=== PATIENT | male | born 1990 | race Caucasian/White ===

== ENCOUNTER 2016-06-10 17:54 | Emergency (ER) | payer BC ==
[~2016-06-10] VITALS: Ht 167.6 cm; Wt 56.7 kg
--- NOTE | 2016-06-10 18:49 | EKG ---
[address] [address] Test Date: 2016-06-10 Test Time: 18:47:51 Pat Name: SE CUNNINGHAM Department: Room: Gender: M [employer] Professional: : 1990 Requested By: SYED TOWNSEND Order Number: [id number] Reading MD: Victor Hugo Lew Measurements Intervals [place] Rate: 109 P: 44 [place]: 130 QRS: 19 QRSD: 70 T: 20 QT: 286 QTc: 386 Interpretive Statements SINUS TACHYCARDIA Electronically Signed On 06-12-2016 10:25:36 CDT by Victor Hugo Lew
[2016-06-10] MEDS ORDERED: ONDANSETRON PF 4 MG/2 ML VIAL. IV ONE (19:00)
[2016-06-10] MEDS: IV NORMAL SALINE 1,000ML 1,000 ML IV SCH ×2 (19:06→19:08)
[2016-06-10 19:19] LABS: BASO # 0.1 x10^3/uL (0.0-0.2); BASO % 1 % (0-3); EOS % 0 % (0-3); HEMATOCRIT 48.6 % (39.0-53.0); HEMOGLOBIN 16.3 g/dL (13.0-17.5); LYMPH # 1.5 x10^3/uL (1.0-4.8); LYMPH % 13 % (24-48); MEAN CORPUSCULAR HEMOGLOBIN 30 pg (25-35); MEAN CORPUSCULAR HGB CONC 34 g/dL (31-37); MEAN CORPUSCULAR VOLUME 88 fL (79-100); MONO # 0.7 x10^3/uL (0.0-1.1); MONO % 6 % (0-9); NEUT # 9.1 x10^3uL (1.8-7.7); NEUT % 80 % (31-73); PLATELET COUNT 342 x10^3/uL (140-400); RED BLOOD COUNT 5.52 x10^6/uL (4.30-5.70); RED CELL DISTRIBUTION WIDTH 12.8 % (11.5-14.5); WHITE BLOOD COUNT 11.3 x10^3/uL (4.0-11.0)
[2016-06-10 19:39] LABS: ALBUMIN 3.9 g/dL (3.4-5.0); ALBUMIN/GLOBULIN RATIO 0.9 (1.0-1.7); CALCIUM 9.5 mg/dL (8.5-10.1); CREATININE 1.4 mg/dL (0.7-1.3); GFR 61.7; TOTAL BILIRUBIN 0.5 mg/dL (0.2-1.0); TOTAL PROTEIN 8.1 g/dL (6.4-8.2)
[2016-06-10] MEDS ORDERED: IV NORMAL SALINE 1,000ML 1,000 ML IV SCH (20:04)
[2016-06-10] MEDS ORDERED: IOHEXOL 300 MG/ML 75 ML VIAL. IV ONE (20:15)
[2016-06-10 20:18] LABS: COLOR,URINE YELLOW
[2016-06-10 20:20] LABS: BILIRUBIN,URINE NEG (NEG); CLARITY,URINE HAZY; NITRITE,URINE NEG (NEG); UROBILINOGEN,URINE 0.2 mg/dL (0.2 mg/dL)
[2016-06-10 20:21] LABS: BACTERIA,URINE 0 /HPF (0-FEW); GLUCOSE,URINE 250 mg/dL (NEG); SQUAMOUS EPITHELIAL CELL,UR FEW /LPF
[2016-06-10 20:25] LABS: HYALINE CASTS, URINE MANY /HPF
[2016-06-10 20:28] LABS: AMPHETAMINE/METHAMPHETAMINE NEG (NEG); BARBITURATES NEG (NEG); BENZODIAZEPINES NEG (NEG); CANNABINOIDS POS (NEG); COCAINE NEG (NEG); METHADONE NEG (NEG); OPIATES NEG (NEG); PHENCYCLIDINE NEG (NEG)
--- NOTE | 2016-06-10 20:41 | RAD ---
PROCEDURE Chest CTA HISTORY Chest pain, shortness of air, tachycardia, elevated D-dimer TECHNIQUE After administration of intravenous contrast, CT imaging was performed of the chest, multiplanar reconstruction images submitted. Exposure: One or more of the following individualized dose reduction techniques were utilized for this exam: 1. Automated exposure control. 2. Adjustment of the mA and/or kV according to patient size. 3. Use of iterative reconstruction technique. Contrast: 75 cc Omnipaque 300 COMPARISON None FINDINGS No pulmonary embolism is identified. There is no pleural or pericardial effusion, pneumothorax, lobar infiltrate. There is a noncalcified left lower lobe pulmonary nodule axial image 105 series 4 up to 0.7 centimeters. The major airways are patent. Density of the anterior mediastinum does not result in significant mass effect, residual or reactive thymus favored. Thoracic aortic caliber is within normal limits without intraluminal flap. No significant lymphadenopathy is identified of the chest. No abnormality of the visualized thyroid gland. There is no significant abnormality of the limited visualized abdominal visceral organs. IMPRESSION 1. No pulmonary embolism is identified. 2. There is a noncalcified left lower lobe incidental pulmonary nodule on the order of 0.7 centimeters. Unless there is a known history of or suspicion for malignancy, this is less likely to be of clinical significance in a patient of this age. Electronically signed by: Teodoro Jo MD (June 10, 2016 20:39:35)
[2016-06-10 20:43] VITALS: BP 115/64
--- NOTE | 2016-06-10 21:02 | PHYS DOC ---
General Chief Complaint: NAUSEA/VOMITING/DIARRHEA Stated Complaint: NAUSEA/VOMITING Time Seen by MD: 18:00 Source: patient Exam Limitations: no limitations Problems: History of Present Illness Initial Comments Pt is 25/M to ED with stepfather for DKA. Pt is DM1, states he's been having "insurance issues" and has been out of Lantus for three weeks. States for the past three weeks he's had N/V/Chest tightness and feeling of dehydration. Pt had some novolog left over from [facility]SI, states he's taken it at random when he hasn't felt well and confirms he took 30units prior to ED arrival. Pt hasn't been checking home glucose and admit to smoking "heavily." ED VS: 97.5, 133, 12, 131/75, 96% RA. Pt denies any s/s focal infection. No fever/chills/diaphoresis/myalgias/cough/ nasal congestion/bowel or bladder sx. Timing/Duration: constant (3 wks) Severity: severe Modifying Factors: improves with medication Associated Symptoms: chest pain, malaise, nausea/vomiting, shortness of breath , other Allergies: Coded Allergies: No Known Drug Allergies (Unverified , 06/10/16) Past Medical History Medical History: diabetes Surgical History: noncontributory Social History Smoker: greater than 1 pack/day Alcohol: occasionally Drugs: none Review of Systems Constitutional: see HPI Respiratory: denies cough, shortness of breathdenies wheezing Cardiovascular: chest paindenies palpitations, denies syncope Gastrointestinal: abdominal paindenies constipation, denies diarrhea, denies nausea, denies vomiting Genitourinary: denies dysuria, frequencydenies hematuria Musculoskeletal: denies back pain, denies joint swelling, denies neck pain Psychiatric/Neurological: denies numbness, denies paresthesia, denies weakness Hematologic/Lymphatic: denies blood clots, denies easy bleeding, denies easy bruising Physical Exam General Appearance: no apparent distress, thin Eyes: bilateral eye EOMI, bilateral eye PERRL, bilateral eye normal inspection Ear, Nose, Throat: hearing grossly normal, normal ENT inspection, normal pharynx (dry membranes) Neck: non-tender, supple Respiratory: normal breath sounds, no respiratory distress Cardiovascular: normal peripheral pulses, tachycardia Gastrointestinal: soft (abdominal mm TTP (mild) neg mcburney/escobedo, nondistended BS nl no mass.) Rectal: deferred Back: no CVA tenderness, no vertebral tenderness Extremities: non-tender, normal inspection Neurologic/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 Labs: WBC 11.3, BUN 17, Cr 1.4, glucose 114, lactic acid 5.8, d-dimer 0.51, AST 95, ALT 291, Lip 174, anion gap 18 UA: glucose 250, ketones 40 UDS: + cannabinoids PATIENT: SE CUNNINGHAM ACCOUNT: [id number] : 1990 LOCATION: ER AGE: 25 SEX: M EXAM STATUS: REG ER ORD. PHYSICIAN: SYED TOWNSEND DO REASON: tachycardia, cp, elev d-dimer PROCEDURE: CT ANGIOGRAPHY CHEST PROCEDURE Chest CTA HISTORY Chest pain, shortness of air, tachycardia, elevated D-dimer TECHNIQUE After administration of intravenous contrast, CT imaging was performed of the chest, multiplanar reconstruction images submitted. Exposure: One or more of the following individualized dose reduction techniques were utilized for this exam: 1. Automated exposure control. 2. Adjustment of the mA and/or kV according to patient size. 3. Use of iterative reconstruction technique. Contrast: 75 cc Omnipaque 300 COMPARISON None FINDINGS No pulmonary embolism is identified. There is no pleural or pericardial effusion, pneumothorax, lobar infiltrate. There is a noncalcified left lower lobe pulmonary nodule axial image 105 series 4 up to 0.7 centimeters. The major airways are patent. Density of the anterior mediastinum does not result in significant mass effect, residual or reactive thymus favored. Thoracic aortic caliber is within normal limits without intraluminal flap. No significant lymphadenopathy is identified of the chest. No abnormality of the visualized thyroid gland. There is no significant abnormality of the limited visualized abdominal visceral organs. IMPRESSION 1. No pulmonary embolism is identified. 2. There is a noncalcified left lower lobe incidental pulmonary nodule on the order of 0.7 centimeters. Unless there is a known history of or suspicion for malignancy, this is less likely to be of clinical significance in a patient of this age. Electronically signed by: Syed Jo MD (June 10, 2016 20:39:35) DICTATED AND SIGNED BY: GONZALES JO MD DATE: 06/10/162038 CC: OSMEL HERNANDEZ MD; SYED TOWNSEND DO ~ Pt received two 1L NS boluses IV in department. recheck of basic by ISTAT glucose 95, anion gap 20 I discussed need for inpatient management, pt initially agreeable. 2214: Pt discussed with Dr Valera. Metabolic Acidosis, admit for hydration and acid/base correction/glucose management. After pt accepted/orders written pt expresses desire to leave AMA. Pt is AOx3, exhibits UCAR capacity. Risks/benefits of staying vs leaving discussed and questions answered. Benefits of staying possible early diagnosis/treatment of lifesaving condition. Possible risks of leaving AMA loss of quality of life and . Pt reiterates desire to leave AMA, understands he may return at any time. Departure Time of Disposition: 22:28 Disposition: 07 AGAINST MEDICAL ADVICE Diagnosis: metabolic acidosis, tobaccoism, DM uncontrolled, Condition: GUARDED Patient Instructions: Diabetes and Standards of Medical Care, Metabolic Acidosis, Smokeless Tobacco Use Additional Instructions: Stop smoking, seek medical assistance if necessary. Aggressive hydration with gatorade, water. Keep detailed glucose log before meals and at bedtime to take with you to endocrinology appointment. Rx: sliding scale insulin with regular insulin SQ As discussed, observation admission recommended to you to correct metabolic acidosis and stabilize your sugar. You have chosen instead to leave Against Medical Advise. Risks and benefits of staying vs leaving have been discussed with you, ultimate risks of leaving without treatment include potential worsening of illness, loss of quality of life, and . You understand you may return at any time. Follow up with your doctor tomorrow 5/2. Return to ED with new or changing symptoms. SYED TOWNSEND DO June 10, 2016 21:02
[2016-06-10 23:17] LABS: HEMOGLOBIN ISTAT 14.6 gm/dL; POTASSIUM ISTAT 4.2 mmol/L (3.5-5.0)
--- NOTE | 2016-06-11 08:13 | RAD ---
Portable chest, 06/10/2016: History: Chest pain, nausea and vomiting The heart size and pulmonary vascularity are normal. No pulmonary infiltrates are seen. There is no evidence of pleural fluid. IMPRESSION: No acute cardiopulmonary abnormality is detected.
== END 2016-06-10 22:35 | disposition left against medical advice (07) ==
LOC: ER 17:54
DX: E87.2 Acidosis (principal); E86.0 Dehydration; E13.10 Other specified diabetes mellitus with ketoacidosis without coma; F17.210 Nicotine dependence, cigarettes, uncomplicated
CPT/HCPCS: 36415; 71010; 71275; 80047; 80053; 80305; 80320; 81001; 82550; 83605; 83690; 84484; 85027; 85379; 87040; 87086; 93005; 96361; 96374; 99285; J2405; Q9967; G0480; G0481; J7030

== ENCOUNTER 2018-06-09 17:43 | Emergency (ER) | payer BC ==
[~2018-06-09] VITALS: Ht 167.6 cm; Wt 56.7 kg
[2018-06-09] MEDS ORDERED: IV NORMAL SALINE 1,000ML 1,000 ML IV ONE ×2 (18:15→18:45)
[2018-06-09 18:35] LABS: BASO # 0.1 x10^3/uL (0.0-0.2); BASO % 1 % (0-3); EOS # 0.1 x10^3/uL (0.0-0.7); EOS % 1 % (0-3); HEMATOCRIT 45.8 % (39.0-53.0); HEMOGLOBIN 15.9 g/dL (13.0-17.5); LYMPH # 2.3 x10^3/uL (1.0-4.8); LYMPH % 27 % (24-48); MEAN CORPUSCULAR HEMOGLOBIN 30 pg (25-35); MEAN CORPUSCULAR HGB CONC 35 g/dL (31-37); MEAN CORPUSCULAR VOLUME 86 fL (79-100); MONO # 0.6 x10^3/uL (0.0-1.1); MONO % 7 % (0-9); NEUT # 5.5 x10^3uL (1.8-7.7); NEUT % 64 % (31-73); PLATELET COUNT 297 x10^3/uL (140-400); RED CELL DISTRIBUTION WIDTH 12.6 % (11.5-14.5); WHITE BLOOD COUNT 8.5 x10^3/uL (4.0-11.0)
[2018-06-09 18:39] LABS: ALBUMIN 4.4 g/dL (3.4-5.0); ALBUMIN/GLOBULIN RATIO 1.2 (1.0-1.7); CALCIUM 9.6 mg/dL (8.5-10.1); CREATININE 1.2 mg/dL (0.7-1.3); GFR 72.6; POTASSIUM 4.4 mmol/L (3.5-5.1); TOTAL BILIRUBIN 0.3 mg/dL (0.2-1.0)
[2018-06-09 19:02] LABS: BACTERIA,URINE FEW /HPF (0-FEW); BILIRUBIN,URINE NEG (NEG); CLARITY,URINE HAZY; COLOR,URINE YELLOW; GLUCOSE,URINE >=1000 mg/dL (NEG); NITRITE,URINE NEG (NEG); RBC,URINE 0 /HPF (0-2); UROBILINOGEN,URINE 0.2 mg/dL (0.2 mg/dL); WBC,URINE 0 /HPF (0-4)
[2018-06-09 19:03] LABS: SQUAMOUS EPITHELIAL CELL,UR OCC /LPF
[2018-06-09 19:15] LABS: AMPHETAMINE/METHAMPHETAMINE NEG (NEG); BARBITURATES NEG (NEG); BENZODIAZEPINES NEG (NEG); CANNABINOIDS NEG (NEG); COCAINE NEG (NEG); METHADONE NEG (NEG); OPIATES NEG (NEG); PHENCYCLIDINE NEG (NEG)
[2018-06-09] MEDS ORDERED: INSULIN REGULAR 100 UNIT/ML 3ML VIAL. SQ ONE (19:45)
--- NOTE | 2018-06-09 19:45 | PHYS DOC ---
Past History Past Medical History: Diabetes Past Surgical History: No Surgical History Smoking: Cigarettes Alcohol Use: None Drug Use: None Adult General Chief Complaint Chief Complaint: DEHYDRATION HPI HPI 27 y/o male presents with history of known elevated blood sugar. Patient reports he been feeling like his blood sugar might be high over the last few days. Reports he has been trying to make his insulin last and not using as much as he should in order to have the prescription last. Denies fever/chills. Reports increased urination. Reports concern that he might be dehydrated. Reports some nausea this AM. Denies vomiting or diarrhea. Review of Systems Review of Systems Constitutional: Denies fever or chills [] Eyes: Denies change in visual acuity, redness, or eye pain [] HENT: Denies nasal congestion or sore throat [] Respiratory: Denies cough or shortness of breath [] Cardiovascular: Denies chest pain or palpitations GI: Denies abdominal pain, vomiting, or diarrhea; reports nausea : Denies dysuria; reports increased frequency Musculoskeletal: Denies back pain or joint pain [] Integument: Denies rash or skin lesions [] Neurologic: Denies headache, focal weakness or sensory changes [] Complete systems were reviewed and found to be within normal limits, except as documented in this note. Current Medications Current Medications Current Medications Medications (Trade) Dose Ordered Sig/Brett Start Time Stop Time Status Last Admin Dose Admin Insulin Human Regular (HumuLIN R VIAL) 14 unit 1X ONCE 06/09/18 19:45 06/09/18 19:46 Sodium Chloride 1,000 ml @ 1,000 mls/hr 1X ONCE 06/09/18 18:45 06/09/18 19:44 06/09/18 18:54 1,000 MLS/HR Allergies Allergies Allergies Coded Allergies Type Severity Reaction Last Updated Verified No Known Drug Allergies 06/10/16 No Physical Exam Physical Exam Constitutional: Well developed, well nourished, no acute distress, non-toxic appearance. [] HENT: Normocephalic, atraumatic, oropharynx tachy Eyes: EOMI, conjunctiva normal, no discharge. [] Neck: Normal range of motion, no tenderness, supple, no meningeal signs Cardiovascular: Heart rate regular rhythm, no murmur [] Lungs & Thorax: Bilateral breath sounds clear to auscultation [] Abdomen: Soft, no tenderness Skin: Warm, dry, no erythema Extremities: No tenderness, ROM intact, no edema. [] Neurologic: Alert and oriented X 3, no focal deficits noted. [] Psychologic: Affect normal, judgement normal, mood normal. [] Current Patient Data Vital Signs Vital Signs Date Time Temp Pulse Resp B/P (MAP) Pulse Ox O2 Delivery O2 Flow Rate FiO2 06/09/18 18:54 98 20 114/81 (92) 99 Room Air 06/09/18 17:50 97.9 Lab Results Laboratory Tests Test 06/09/18 18:12 06/09/18 18:20 06/09/18 18:25 White Blood Count 8.5 x10^3/uL (4.0-11.0) Red Blood Count 5.30 x10^6/uL (4.30-5.70) Hemoglobin 15.9 g/dL (13.0-17.5) Hematocrit 45.8 % (39.0-53.0) Mean Corpuscular Volume 86 fL (79-100) Mean Corpuscular Hemoglobin 30 pg (25-35) Mean Corpuscular Hemoglobin Concent 35 g/dL (31-37) Red Cell Distribution Width 12.6 % (11.5-14.5) Platelet Count 297 x10^3/uL (140-400) Neutrophils (%) (Auto) 64 % (31-73) Lymphocytes (%) (Auto) 27 % (24-48) Monocytes (%) (Auto) 7 % (0-9) Eosinophils (%) (Auto) 1 % (0-3) Basophils (%) (Auto) 1 % (0-3) Neutrophils # (Auto) 5.5 x10^3uL (1.8-7.7) Lymphocytes # (Auto) 2.3 x10^3/uL (1.0-4.8) Monocytes # (Auto) 0.6 x10^3/uL (0.0-1.1) Eosinophils # (Auto) 0.1 x10^3/uL (0.0-0.7) Basophils # (Auto) 0.1 x10^3/uL (0.0-0.2) Magnesium Level 2.2 mg/dL (1.8-2.4) Urine Collection Type Void Urine Color Yellow Urine Clarity Hazy Urine pH 5.5 Urine Specific [place] 1.010 Urine Protein Neg (NEG-TRACE) Urine Glucose (UA) >=1000 mg/dL (NEG) Urine Ketones (Stick) Neg mg/dL (NEG) Urine Blood Neg (NEG) Urine Nitrite Neg (NEG) Urine Bilirubin Neg (NEG) Urine Urobilinogen Dipstick 0.2 mg/dL (0.2 mg/dL) Urine Leukocyte Esterase Neg (NEG) Urine RBC 0 /HPF (0-2) Urine WBC 0 /HPF (0-4) Urine Squamous Epithelial Cells Occ /LPF Urine Bacteria Few /HPF (0-FEW) Sodium Level 138 mmol/L (136-145) Potassium Level 4.4 mmol/L (3.5-5.1) Chloride Level 100 mmol/L (98-107) Carbon Dioxide Level 28 mmol/L (21-32) Anion Gap 10 (6-14) Blood Urea Nitrogen 13 mg/dL (8-26) Creatinine 1.2 mg/dL (0.7-1.3) Estimated GFR (Cockcroft-Gault) 72.6 BUN/Creatinine Ratio 11 (6-20) Glucose Level 373 mg/dL (70-99) H Calcium Level 9.6 mg/dL (8.5-10.1) Total Bilirubin 0.3 mg/dL (0.2-1.0) Aspartate Amino Transferase (AST) 14 U/L (15-37) L Alanine Aminotransferase (ALT) 21 U/L (16-63) Alkaline Phosphatase 128 U/L (46-116) H Total Protein 8.0 g/dL (6.4-8.2) Albumin 4.4 g/dL (3.4-5.0) Albumin/Globulin Ratio 1.2 (1.0-1.7) Urine Opiates Screen Neg (NEG) Urine Methadone Screen Neg (NEG) Urine Barbiturates Neg (NEG) Urine Phencyclidine Screen Neg (NEG) Urine Amphetamine/Methamphetamine Neg (NEG) Urine Benzodiazepines Screen Neg (NEG) Urine Cocaine Screen Neg (NEG) Urine Cannabinoids Screen Neg (NEG) Urine Ethyl Alcohol Neg (NEG) Acetone Level Neg (NEG) EKG EKG [] Radiology/Procedures Radiology/Procedures [] Course & Med Decision Making Course & Med Decision Making Pertinent Labs reviewed. (See chart for details) Patient presents with history of present illness and physical exam concerning for hyperglycemia. Patient clinically with some mild dehydration. Initial Accu- Chek greater than 380. IV fluid hydration 2 L provided. Labs obtained and posted to chart. Acetone negative. Patient does not appear in any signs of DKA or hyperosmolar hyperglycemic state. Recheck Accu-Chek now significantly decreased. Patient advised to take his insulin medication as prescribed and to follow with his family physician regarding adjustment of his medication to control his blood sugars. Patient requested a urine drug screen to be performed as patient was unable to provide a urine sample associated with some prior legal proceedings. Patient advised a urine drug screen from the emergency department is performed for medical purposes as opposed to legal proceedings. Patient acknowledges this understanding but requests that a drug screen was performed. The test was therefore performed. UDS negative. Patient was provided with a copy of his drug screen. Patient stable for discharge with outpatient follow-up with PCP. Discussed findings and plan with patient, who acknowledges understanding and agreement. Dragon Disclaimer Dragon Disclaimer This electronic medical record was generated, in whole or in part, using a voice recognition dictation system. Departure Departure: Impression: Primary Impression: Hyperglycemia Additional Impression: Dehydration Disposition: 01 HOME, SELF-CARE Condition: STABLE Referrals: OSMEL HERNANDEZ MD (PCP) Patient Instructions: Dehydration, Adult, [id number], Diabetes Meal Planning Guide, Diet - 2000 Calorie Diabetic, Hyperglycemia, [id number] Additional Instructions: Increase your fluid intake. Take your medications as prescribed and maintain a diabetic diet. Problem Qualifiers AUGUSTO JACK DO Jun 09, 2018 19:45
[2018-06-09 20:03] VITALS: BP 118/79
== END 2018-06-09 20:03 | disposition home or self-care (01) ==
LOC: ER 17:43
DX: E11.65 Type 2 diabetes mellitus with hyperglycemia (principal); E86.0 Dehydration; F17.210 Nicotine dependence, cigarettes, uncomplicated
CPT/HCPCS: 36415; 80053; 80307; 81001; 82010; 82947; 83735; 85025; 96360; 99284-25; J7030

== ENCOUNTER 2019-08-24 07:50 | Emergency (ER) | payer BC | END 2019-08-24 08:30 | disposition home or self-care (01) | LOC: ER 07:50 | DX: R11.2 Nausea with vomiting, unspecified (principal) | CPT/HCPCS: 82947; 99283 ==